=== PATIENT | female | born 1980 | race African-American/Black ===

== ENCOUNTER 2022-06-11 09:21 | Inpatient (IN) | payer BC ==
[2022-06-08 08:32] LABS: BASOPHILS # (AUTO) 0.1 (0.0-0.1); BASOPHILS % 0.9 % (0.0-1.0); EOSINOPHILS # (AUTO) 0.1 (0.0-0.4); EOSINOPHILS % 1.3 % (0.0-6.0); HEMATOCRIT 38.6 % (34.2-44.1); HEMOGLOBIN 12.1 g/dL (12.0-16.0); LYMPHOCYTES # (AUTO) 3.2 (1.0-3.2); LYMPHOCYTES % 46.3 % (18.0-39.1); MEAN CORPUSCULAR HEMOGLOBIN 27.6 pg (28-32); MEAN CORPUSCULAR HGB CONC 31.3 g/dL (31-35); MEAN CORPUSCULAR VOLUME 87.9 fL (81-99); MONOCYTES # (AUTO) 0.4 (0.2-0.8); MONOCYTES % 5.8 % (4.4-11.3); NEUTROPHILS # (AUTO) 3.1 (2.1-6.9); NEUTROPHILS % 45.6 % (38.7-80.0); PLATELET COUNT 397 x10e3/uL (140-360); RED BLOOD COUNT 4.39 x10e6/uL (3.6-5.1); RED CELL DISTRIBUTION WIDTH 13.8 % (11.7-14.4)
[~2022-06-11] VITALS: Ht 170.2 cm; Wt 131.1 kg
[~2022-06-11 09:21] MED LIST: SCOPOLAMINE 1 MG PATCH TOP SCH
[2022-06-11] MEDS ORDERED: SCOPOLAMINE 1 MG PATCH ONE (09:34)
[2022-06-11] MEDS ORDERED: CEFAZOLIN SODIUM 2 GM ONE (09:34)
[2022-06-11] MEDS ORDERED: LACTATED RINGER'S 1,000 ML ONE (09:34)
[2022-06-11] MEDS ORDERED: BUPIVACAINE 0.5%/EPI 30 ML SDV INJ ONE (11:30)
[2022-06-11] MEDS ORDERED: ONDANSETRON HCL INJ 2MG/ML 2ML 2 MG/ML VIAL ONE (12:48)
[2022-06-11] MEDS ORDERED: PROPOFOL IV EMULSION 10 MG/ML 20 ML VIAL ONE (12:48)
[2022-06-11] MEDS ORDERED: ROCURONIUM BROMIDE 10 MG/ML 5ML VIAL IV ONE (12:48)
[2022-06-11] MEDS ORDERED: LIDOCAINE HCL 2% LOCAL INJ 5 ML SDV VIAL INJ ONE (12:48)
[2022-06-11] MEDS ORDERED: POVIDONE IODINE 0.05% 0.05 % ML PO ONE (12:48)
[2022-06-11] MEDS ORDERED: SEVOFLURANE INHAL SOLN 250 ML PEN BTL ONE (12:48)
[2022-06-11] MEDS ORDERED: KETOROLAC TROMETHAMINE 30 MG/ML VIAL ONE (12:48)
[2022-06-11] MEDS ORDERED: DEXAMETHASONE SOD PHOS INJ 4 MG/ML SDV ONE (12:48)
[2022-06-11] MEDS ORDERED: SUGAMMADEX SODIUM 200 MG/2 ML VIAL IV ONE (12:52)
[2022-06-11] MEDS ORDERED: ACETAMINOPHEN 1000 MG/100 ML 100 ML IV ONE (12:52)
[2022-06-11] MEDS ORDERED: FENTANYL CITRATE/PF 100MCG/2 ML INJ ONE ×2 (13:26→15:28)
[2022-06-11] MEDS ORDERED: BUPIVACAINE 0.25% 30ML SDV ONE (13:30)
[2022-06-11] MEDS ORDERED: BUPIVACAINE HCL 0.25% 10ML MPF VIAL INJ ONE (13:30)
[2022-06-11] MEDS ORDERED: HYDROMORPHONE 1MG/1ML INJ ONE (15:44)
[2022-06-11] MEDS: SODIUM CHLORIDE 0.9% 1000ML 1,000 ML IV SCH ×2 (16:18→18:05)
[2022-06-11 16:19] VITALS: BP 131/92
[2022-06-11] MEDS: ONDANSETRON HCL INJ 2MG/ML 2ML 2 MG/ML VIAL IV PRN ×2 (16:33→20:52)
[2022-06-11] MEDS: Morphine 2mg Syringe 2 MG/ML SYR IV PRN ×4 (16:33→23:17)
[2022-06-11] MEDS: HYDROCODONE/APAP 7.5MG-325MG 1 EA TAB PO PRN (18:04)
[2022-06-11 18:16] VITALS: BP 131/92
[2022-06-11 18:23] VITALS: BP 131/92
[2022-06-11 20:00] VITALS: BP 136/80
[2022-06-11 20:45] VITALS: BP 136/80
[2022-06-11] MEDS: ENOXAPARIN SOD INJ 40 MG/0.4 ML SYR SC SCH (20:52)
[2022-06-12] VITALS: BP 114/65
[2022-06-12] MEDS ORDERED: SODIUM CHLORIDE 0.9% 1000ML 1,000 ML IV SCH (02:00)
[2022-06-12] MEDS: ONDANSETRON HCL INJ 2MG/ML 2ML 2 MG/ML VIAL IV PRN (02:03)
[2022-06-12] MEDS: Morphine 2mg Syringe 2 MG/ML SYR IV PRN (02:04)
[2022-06-12 04:00] VITALS: BP 123/66
[2022-06-12 05:07] LABS: BASOPHILS % 0.1 % (0.0-1.0); HEMATOCRIT 34.5 % (34.2-44.1); HEMOGLOBIN 11.1 g/dL (12.0-16.0); LYMPHOCYTES # (AUTO) 1.3 (1.0-3.2); LYMPHOCYTES % 11.6 % (18.0-39.1); MEAN CORPUSCULAR HEMOGLOBIN 28.1 pg (28-32); MEAN CORPUSCULAR HGB CONC 32.2 g/dL (31-35); MEAN CORPUSCULAR VOLUME 87.3 fL (81-99); MONOCYTES # (AUTO) 0.5 (0.2-0.8); MONOCYTES % 4.1 % (4.4-11.3); NEUTROPHILS # (AUTO) 9.2 (2.1-6.9); NEUTROPHILS % 83.7 % (38.7-80.0); PLATELET COUNT 354 x10e3/uL (140-360); RED BLOOD COUNT 3.95 x10e6/uL (3.6-5.1); RED CELL DISTRIBUTION WIDTH 13.9 % (11.7-14.4)
[2022-06-12 05:35] LABS: ALBUMIN 3.1 g/dL (3.5-5.0); ALBUMIN/GLOBULIN RATIO 0.8 (0.8-2.0); ANION GAP 14.1 mmol/L (8-16); CALCIUM 8.3 mg/dL (8.4-10.2); CREATININE, SERUM 0.72 mg/dL (0.57-1.11); MAGNESIUM 1.7 MG/DL (1.3-2.1); PHOSPHORUS 3.2 MG/DL (2.3-4.7); POTASSIUM 4.1 mmol/L (3.5-5.1)
[2022-06-12 08:00] VITALS: BP 123/66
[2022-06-12] MEDS: HYDROCODONE/APAP 7.5MG-325MG 1 EA TAB PO PRN (08:01)
[2022-06-12] MEDS: ENOXAPARIN SOD INJ 40 MG/0.4 ML SYR SC SCH (08:02)
[2022-06-12 09:09] VITALS: BP 121/85
== END 2022-06-12 09:53 | disposition home or self-care (01) | DRG 621 ==
LOC: OR 09:21 → PACU V 14:57 → MED/SURG 16:19 → UNDODISIN 06-12 09:53
PROVIDERS: ADMIT Internal Medicine; ATTEND Internal Medicine
PROC: 0DB64Z3 Excision of Stomach, Percutaneous Endoscopic Approach, Vertical (ICD-10-PCS; principal; 2022-06-11 13:27)
DX: E66.01 Morbid (severe) obesity due to excess calories (principal); Z68.42 Body mass index [BMI] 45.0-49.9, adult; R03.0 Elevated blood-pressure reading, without diagnosis of hypertension; Z20.822 Contact with and (suspected) exposure to COVID-19
CPT/HCPCS: 0223U; 36415; 80053; 81025; 83735; 84100; 85025; 93005; 94799; C1713; J1100; J1170; J1650; J1885; J2001; J2270; J2405; J7030